=== PATIENT | female | born 1960 | race Caucasian/White ===

== ENCOUNTER → 2016-11-20 | Outpatient (CLI) | payer BC ==
--- NOTE | 2016-11-20 10:18 | MM ---
Reason for exam: screening (asymptomatic). Last mammogram was performed 1 year ago. History: Patient is postmenopausal. Physical Findings: A clinical breast exam by your physician is recommended on an annual basis and results should be correlated with mammographic findings. MG 3D Screening Mammo W/Cad Bilateral CC and MLO view(s) were taken. Prior study comparison: November 10, 2015, bilateral MG screening mammo w CAD. October 21, 2014, bilateral MG screening mammo w CAD. There are scattered fibroglandular densities. No significant changes when compared with prior studies. ASSESSMENT: Benign, BI-RAD 2 RECOMMENDATION: Routine screening mammogram of both breasts in 1 year.
== END | disposition home or self-care (01) ==
LOC: RADMAMWWP 08:51
PROVIDERS: ATTEND Obstetrics & Gynecology
DX: Z12.31 Encounter for screening mammogram for malignant neoplasm of breast (principal)
CPT/HCPCS: 77063; G0202

== ENCOUNTER → 2018-01-16 | Outpatient (CLI) | payer BC ==
--- NOTE | 2018-01-17 11:32 | MM ---
Reason for exam: screening (asymptomatic). Last mammogram was performed 1 year and 2 months ago. History: Patient is postmenopausal. Physical Findings: A clinical breast exam by your physician is recommended on an annual basis and results should be correlated with mammographic findings. MG 3D Screening Mammo W/Cad Bilateral CC and MLO view(s) were taken. Prior study comparison: November 20, 2016, bilateral MG 3d screening mammo w/cad. November 10, 2015, bilateral MG screening mammo w CAD. There are scattered fibroglandular densities. There is a 5mm right lower inner quadrant mass at anterior middle depth with associated asymmetry centrally at middle depth on MLO view only (possibly ductal). No suspicious abnormality on the left breast. ASSESSMENT: Incomplete: need additional imaging evaluation, BI-RAD 0 RECOMMENDATION: Ultrasound of the right breast. [facility] will attempt to contact patient to return for ultrasound.
== END | disposition home or self-care (01) ==
LOC: RADMAMWWP 15:11
PROVIDERS: ATTEND Obstetrics & Gynecology
DX: Z12.31 Encounter for screening mammogram for malignant neoplasm of breast (principal)
CPT/HCPCS: 77063; 77067

== ENCOUNTER → 2018-01-23 | Outpatient (CLI) | payer BC ==
--- NOTE | 2018-01-23 16:13 | USB ---
Reason for exam: additional evaluation requested from abnormal screening. History: Patient is postmenopausal. Physical Findings: Nurse did not find any significant physical abnormalities on exam. US Breast Workup RT Right complete breast ultrasound includes all four quadrants, the retroareolar region and axilla. Finding demonstrates no cystic or solid lesion seen. These results were verbally communicated with the patient and result sheet given to the patient on 01/23/18. ASSESSMENT: Probably benign, BI-RAD 3 RECOMMENDATION: Follow-up diagnostic mammogram of the right breast in 6 months.
== END | disposition home or self-care (01) ==
LOC: RADUSWWP 07:34
PROVIDERS: ATTEND Obstetrics & Gynecology
DX: R92.8 Other abnormal and inconclusive findings on diagnostic imaging of breast (principal)

== ENCOUNTER → 2018-07-22 | Outpatient (CLI) | payer BC ==
--- NOTE | 2018-07-22 13:32 | MM ---
Reason for exam: follow-up at short interval from prior study. Last mammogram was performed 6 months ago. History: Patient is postmenopausal. Physical Findings: Nurse did not find any significant physical abnormalities on exam. MG 3D Diag Mammo W/Cad RT CC and MLO view(s) were taken of the right breast. Prior study comparison: January 16, 2018, bilateral MG 3d screening mammo w/cad. November 20, 2016, bilateral MG 3d screening mammo w/cad. The breast tissue is heterogeneously dense. This may lower the sensitivity of mammography. Finding: There is a typically benign 3 mm equal density (isodense), circumscribed round mass in the upper outer quadrant, anterior position of the right breast. No significant changes in finding since January 16, 2018 and November 20, 2016. These results were verbally communicated with the patient and result sheet given to the patient on 07/22/18. ASSESSMENT: Benign, BI-RAD 2 RECOMMENDATION: Return to routine screening mammogram schedule for both breasts. Back on schedule.
== END | disposition home or self-care (01) ==
LOC: RADMAMWWP 12:49
PROVIDERS: ATTEND Obstetrics & Gynecology
DX: R92.8 Other abnormal and inconclusive findings on diagnostic imaging of breast (principal)
CPT/HCPCS: 77061; 77065

== ENCOUNTER → 2019-02-24 | Outpatient (CLI) | payer BC ==
--- NOTE | 2019-02-24 10:59 | BD ---
EXAMINATION TYPE: Axial Bone Density DATE OF EXAM: 02/24/2019 COMPARISON: 2016 CLINICAL HISTORY: M [age] Height: 5 FT 4 IN Weight: 195 FRAX RISK QUESTIONS: Family History (Parent hip fracture): YES Glucocorticoids (More than 3mos): YES (Ex: prednisone, prednisolone, methylprednisolone, dexamethasone, and hydrocortisone). Secondary Osteoporosis: RISK FACTORS HISTORY OF: Family History of Osteoporosis: YES Active: YES Postmenopausal woman: LATE 40'S MEDICATIONS: Thyroid Medications: YES Which medication: LEVOTHYROXINE How Long: SINCE HER 20'S Additional Medications: LEVOTHYROXINE,NEXIUM, CELEXA, DEBORAH, PLAQUENIL, VALSARTAN, VIT D, TRIAMCINL ON CREAM NEEDED Additional History: PT HAS LUPUS EXAM MEASUREMENTS: Bone mineral densitometry was performed using the Datalot System. Bone mineral density as measured about the Lumbar spine is: ----- L1-L4(G/cm2): 1.109 T Score Values are as follows: ----- L2: -0.8 ----- L3: 0.2 ----- L4: -0.7 ----- L1-L4: -0.6 Bone mineral density has: INCREASED 2.9 % since study of: 2016 Bone mineral density about the R hip (g/cm2): 1.052 Bone mineral density about the L hip (g/cm2): 1.040 T Score values are as follows: -----R Neck: 0.1 -----L Neck: 0.0 -----R Total: 1.0 -----L Total: 0.8 Bone mineral density has: DECREASED -1.9 % since study of: 2016 IMPRESSION: Normal (Values between +1 and -1 indicate normal bone mass). Consider repeating this study in 5 year s or sooner if there is some new clinical indication. NOTE: T-SCORE=SD OF THE YOUNG ADULT MEAN.
--- NOTE | 2019-02-25 10:55 | MM ---
Reason for exam: screening (asymptomatic). Last mammogram was performed 7 months ago. History: Patient is postmenopausal. Physical Findings: A clinical breast exam by your physician is recommended on an annual basis and results should be correlated with mammographic findings. MG 3D Screening Mammo W/Cad Bilateral CC and MLO view(s) were taken. Prior study comparison: July 22, 2018, right breast MG 3d diag mammo w/cad RT. January 16, 2018, bilateral MG 3d screening mammo w/cad. The breast tissue is heterogeneously dense. This may lower the sensitivity of mammography. No suspicious abnormality. No significant changes when compared with prior studies. ASSESSMENT: Negative, BI-RAD 1 RECOMMENDATION: Routine screening mammogram of both breasts in 1 year.
== END | disposition home or self-care (01) ==
LOC: RADMAMWWP 09:12
PROVIDERS: ATTEND Obstetrics & Gynecology
DX: Z12.31 Encounter for screening mammogram for malignant neoplasm of breast (principal); M89.9 Disorder of bone, unspecified
CPT/HCPCS: 77063; 77067; 77080

== ENCOUNTER → 2020-03-23 | Outpatient (CLI) | payer BC ==
--- NOTE | 2020-03-24 09:08 | MM ---
Reason for exam: screening (asymptomatic). Last mammogram was performed 1 year and 1 month ago. History: Patient is postmenopausal. Physical Findings: A clinical breast exam by your physician is recommended on an annual basis and results should be correlated with mammographic findings. MG 3D Screening Mammo W/Cad Bilateral CC and MLO view(s) were taken. Prior study comparison: February 24, 2019, bilateral MG 3d screening mammo w/cad. July 22, 2018, right breast MG 3d diag mammo w/cad RT. The breast tissue is heterogeneously dense. This may lower the sensitivity of mammography. There are benign appearing round, regional calcifications bilaterally, greater in the left breast. There is no discrete abnormality. ASSESSMENT: Benign, BI-RAD 2 RECOMMENDATION: Routine screening mammogram of both breasts in 1 year.
== END | disposition home or self-care (01) ==
LOC: RADMAMWWP 09:57
PROVIDERS: ATTEND Obstetrics & Gynecology
DX: Z12.31 Encounter for screening mammogram for malignant neoplasm of breast (principal)
CPT/HCPCS: 77063; 77067

== ENCOUNTER 2020-05-06 05:41 | Day surgery (SDC) | payer BC ==
[2020-04-29 16:20] VITALS: BMI 38.0
--- NOTE | 2020-05-05 12:56 | P.HPOB ---
History of Present Illness H&P Date: 05/05/20 Chief Complaint: Postmenopausal bleeding and endometrial thickening This patient is a pleasant 59-year-old 2 para 2 female who presented to my office with complaints of some spotting after intercourse. She states that was painful and then she had some bright red bleeding and then later it was brown. Due to her age however I did get an ultrasound which showed a questionable 1.1 cm endometrial polyp with endometrial thickness of 6 mm. I've advised hysteroscopy D&C for further evaluation. Review of Systems Menstruation: Reports as per HPI, Reports postmenopausal Past Medical History Past Medical History: Blood Disorder, GERD/Reflux, Hearing Disorder / Deafness, Hypertension, Skin Disorder, Thyroid Disorder Additional Past Medical History / Comment(s): Hx hemolytic anemia. Sl loss hearing Rt ear. Lupus, gets occ rashes. PM bleeding, polyp History of Any Multi-Drug Resistant Organisms: None Reported Past Surgical History: Cholecystectomy Additional Past Surgical History / Comment(s): D&C. Exc lipomas from leg Past Anesthesia/Blood Transfusion Reactions: Motion Sickness Smoking Status: Never smoker Past Alcohol Use History: None Reported Past Drug Use History: None Reported - Past Family History Mother Family Medical History: Cancer Additional Family Medical History / Comment(s): uterine cancer Father Family Medical History: Cancer Additional Family Medical History / Comment(s): Prostate cancer. Hx blood clot in arm, heart valve problems Medications and Allergies Home Medications Medication Instructions Recorded Confirmed Type Jay Jay/D3/Mag11/Zinc/Emotionally Impaired Teacher/Micheal/Bor 1 each PO DAILY 04/29/20 04/29/20 History [Caltrate 600+D Plus Tablet] Cholecalciferol [Vitamin D3 (25 1,000 unit PO DAILY 04/29/20 04/29/20 History Mcg = 1000 Iu)] Citalopram Hydrobromide 10 mg PO HS 04/29/20 04/29/20 History [Citalopram HBr] Esomeprazole Magnesium [NexIUM] 40 mg PO DAILY 04/29/20 04/29/20 History Fexofenadine HCl [Sharon Allergy] 180 mg PO DAILY 04/29/20 04/29/20 History Fluticasone Nasal Sigel [Flonase 2 spr EA NOSTRIL DAILY PRN 04/29/20 04/29/20 History Nasal Sigel] Hydroxychloroquine Sulfate 200 mg PO BID 04/29/20 04/29/20 History [Plaquenil] Ibuprofen [Motrin Ib] 400 - 600 mg PO Q8H 04/29/20 04/29/20 History Levothyroxine Sodium [Synthroid] 87.5 mcg PO FR 04/29/20 04/29/20 History Levothyroxine Sodium [Synthroid] 175 mcg PO SUMOTUWETHSA 04/29/20 04/29/20 History Triamcinolone 0.1% Cream [Kenalog 1 applicatio TOPICAL BID PRN 04/29/20 04/29/20 History 0.1% Cream] Valsartan [Diovan] 60 mg PO DAILY 04/29/20 04/29/20 History Allergies Allergy/AdvReac Type Severity Reaction Status Date / Time No Known Allergies Allergy Verified 04/29/20 15:53 Exam - OBG Physical Exam Abdomen: bowel sounds normal, no diffuse tenderness, no bruit present, no guarding noted, no hepatomegaly, no splenomegaly, no mass Vulva: both: normal Vagina: normal moisture, no discharge Cervix: no lesion, no discharge Uterus: normal size, normal contour Results Ultrasound done on April 22 showed a 1.1 cm questionable endometrial polyp with an endometrial thickness of 0.6 cm Assessment and Plan Assessment: This is a pleasant 59-year-old 2 para 2 female with an episode of postmenopausal bleeding and questionable endometrial polyp/endometrial thickening on ultrasound. Plan is hysteroscopy and D&C. I had a long discussion with the patient about the surgery and risks including risks of infection, bleeding, possible uterine perforation. All the patient's questions have been answered and a written consent is obtained. (1) Post-menopausal bleeding Status: Acute Code(s): N95.0 - POSTMENOPAUSAL BLEEDING SNOMED Code(s): 19969073 (2) Endometrial thickening on ultrasound Status: Acute Code(s): R93.89 - ABNORMAL FINDINGS ON DX IMAGING OF OTH BODY STRUCTURES SNOMED Code(s): 106020717
[~2020-05-06 05:41] MED LIST: DEXAMETHASONE SOD PHOSPHATE 4 MG/ML 1 ML VIAL IV ONE; HYDROmorphone 0.5 MG/0.5 ML SYRINGE IVP PRN; LACTATED RINGERS 1,000 ML IV SCH; MIDAZOLAM 2 MG/2 ML VIAL IV PRN; ONDANSETRON 4 MG/2 ML VIAL IVP ONE; Pre Op ABX Message 1 EACH MISC MISCELLANE ONE; SCOPOLAMINE 1.5MG/72HR PATCH TRANSDERM ONE
[2020-05-06] MEDS ORDERED: LIDOCAINE 1% (10MG/ML) FOR IV START INTRADERMA ONE (06:18)
[2020-05-06] MEDS ORDERED: fentaNYL (PF) 50 MCG/ML 2 ML AMP ONE (06:57)
[2020-05-06] MEDS ORDERED: PROPOFOL 10 MG/ML 20 ML VIAL IV ONE (06:57)
[2020-05-06] MEDS ORDERED: KETOROLAC 15 MG/ML 1 ML VIAL ONE (06:57)
[2020-05-06] MEDS ORDERED: MIDAZOLAM 2 MG/2 ML VIAL ONE (06:57)
[2020-05-06] MEDS ORDERED: KETAMINE 10 MG/ML 20 ML VIAL ONE (06:57)
--- NOTE | 2020-05-06 07:36 | P.OP ---
Date of Procedure: 05/06/20 Preoperative Diagnosis: Postmenopausal bleeding with thickened endometrium on ultrasound Postoperative Diagnosis: Same Procedure(s) Performed: #1: Hysteroscopy. #2: Dilation and curettage Anesthesia: other (IV sedation) Surgeon: Sean Spring Estimated Blood Loss (ml): 5 Urine output (ml): 40 Pathology: other (Uterine curettings) Condition: stable Disposition: PACU Indications for Procedure: Please see dictated H&P for intimate details of this patient's admission. Brief summary this is a pleasant 59-year-old 2 para 2 female who had an episode of postmenopausal bleeding and ultrasound showing endometrial thickening with probable polyp. Patient now presents for hysteroscopy D&C for further evaluation. Patient and I have discussed the surgery and risks and risks of infection, bleeding, possible uterine perforation. All the patient's questions are answered written consent is obtained Operative Findings: This patient had an atrophic endometrium with a benign appearing polyp on the left corneal area. Description of Procedure: This patient is taken to the operating room where she is laid in the supine position. She subsequent undergoes IV sedation for adequate level of anesthe cristi. Patient is then placed in dorsal lithotomy position. She has a vaginal perineal prep and drape. Examination under anesthesia shows a mid position uterus is small. I first drain the bladder for 40 mL of clear urine. Weighted speculum placed in posterior vagina. Anterior lip the cervix was grabbed with an Allis clamp. Uterus is gently sounded to approximately 7-1/2 cm. Gentle dilation is then done of the endocervix to allow the hysteroscope into the uterine cavity. Hysteroscopy is then performed with saline solution. Endometrium appears thin and atrophic. Over on the right corneal area there is approximately 1 cm benign appearing polyp. The hysteroscope was then removed. Serial dilation is done of the endocervix more to allow a polyp forceps into the uterine cavity using polyp forceps unable to remove the majority of this polyp. Sharp curettage is done for more polyp fragments and adequate sampling of all the endometrium. Again the endometrium appears very atrophic and there is no concerning lesions noted. With this done the Allis clamp and weighted speculum removed. All counts are correct 3. Patient is awakened from anesthesia and taken recovery room satisfactory condition. There are no complications.
[2020-05-06 07:40] VITALS: TEMP 97.6
[2020-05-06] MEDS ORDERED: LACTATED RINGERS 1,000 ML IV ONE (08:02)
[2020-05-06 08:33] VITALS: RESP 16
[2020-05-06 08:50] VITALS: BP 158/93; PULSE 66
== END 2020-05-06 09:15 | disposition home or self-care (01) ==
LOC: OR 05:41
PROVIDERS: ATTEND Obstetrics & Gynecology
DX: N84.0 Polyp of corpus uteri (principal); N95.0 Postmenopausal bleeding; I10 Essential (primary) hypertension; F32.9 Major depressive disorder, single episode, unspecified; F41.9 Anxiety disorder, unspecified; E03.9 Hypothyroidism, unspecified; F41.0 Panic disorder [episodic paroxysmal anxiety]; E87.6 Hypokalemia; J30.2 Other seasonal allergic rhinitis; M32.9 Systemic lupus erythematosus, unspecified; G89.29 Other chronic pain; M54.9 Dorsalgia, unspecified; K21.9 Gastro-esophageal reflux disease without esophagitis; H90.41 Sensorineural hearing loss, unilateral, right ear, with unrestricted hearing on the contralateral side; Z88.8 Allergy status to other drugs, medicaments and biological substances; Z79.890 Hormone replacement therapy; Z79.52 Long term (current) use of systemic steroids; Z79.899 Other long term (current) drug therapy; Z79.1 Long term (current) use of non-steroidal anti-inflammatories (NSAID); Z98.890 Other specified postprocedural states; Z86.2 Personal history of diseases of the blood and blood-forming organs and certain disorders involving the immune mechanism; Z90.49 Acquired absence of other specified parts of digestive tract; Z87.898 Personal history of other specified conditions; Z82.49 Family history of ischemic heart disease and other diseases of the circulatory system; Z83.3 Family history of diabetes mellitus; Z80.49 Family history of malignant neoplasm of other genital organs; Z80.42 Family history of malignant neoplasm of prostate
CPT/HCPCS: 88305; 84132; 58558; J2250; J1100; J2405; J3010; J1885; J2704

== ENCOUNTER → 2021-05-03 | Outpatient (CLI) | payer BC ==
--- NOTE | 2021-05-04 11:47 | MM ---
Reason for exam: screening (asymptomatic). Last mammogram was performed 1 year and 1 month ago. History: Patient is postmenopausal. Physical Findings: A clinical breast exam by your physician is recommended on an annual basis and results should be correlated with mammographic findings. MG 3D Screening Mammo W/Cad Bilateral CC and MLO view(s) were taken. Prior study comparison: March 23, 2020, bilateral MG 3d screening mammo w/cad. February 24, 2019, bilateral MG 3d screening mammo w/cad. There are scattered fibroglandular densities. No significant changes when compared with prior studies. ASSESSMENT: Benign, BI-RAD 2 RECOMMENDATION: Routine screening mammogram of both breasts in 1 year.
== END | disposition home or self-care (01) ==
LOC: RADMAMWWP 09:14
PROVIDERS: ATTEND Obstetrics & Gynecology
DX: Z12.31 Encounter for screening mammogram for malignant neoplasm of breast (principal)
CPT/HCPCS: 77063; 77067

== ENCOUNTER → 2022-05-04 | Outpatient (CLI) | payer BC ==
--- NOTE | 2022-05-07 10:43 | MM ---
Reason for Exam: Screening (asymptomatic). Last screening mammogram was performed 12 month(s) ago. Patient History: Menarche at age 14. First Full-Term at age 27. Postmenopausal. Patient has history of breast feeding. Risk Values: Arielle 5 year model risk: 1.5%. NCI Lifetime model risk: 7.2%. Prior Study Comparison: 02/24/2019 Bilateral Screening Mammogram, [facility]. 03/23/2020 Bilateral Screening Mammogram, [facility]. 05/03/2021 Bilateral Screening Mammogram, [facility]. Tissue Density: The breast tissue is almost entirely fat. Findings: Analyzed By CAD. There is no suspicious group of microcalcifications or new suspicious mass in either breast. Overall Assessment: Negative, BI-RAD 1 Management: Screening Mammogram of both breasts in 1 year. A clinical breast exam by your physician is recommended on an annual basis and results should be correlated with mammographic findings. [facility] will attempt to contact patient to return for supplemental views and ultrasound if indicated. Electronically signed and approved by: Beny White DO
== END | disposition home or self-care (01) ==
LOC: RADMAMWWP 08:55
PROVIDERS: ATTEND Obstetrics & Gynecology
DX: Z12.31 Encounter for screening mammogram for malignant neoplasm of breast (principal); Z78.0 Asymptomatic menopausal state
CPT/HCPCS: 77063; 77067

== ENCOUNTER → 2023-07-23 | Outpatient (CLI) | payer BC ==
--- NOTE | 2023-07-24 09:52 | MM ---
Reason for Exam: Screening (asymptomatic). Last mammogram was performed 1 year(s) and 3 month(s) ago. Patient History: Menarche at age 14. First Full-Term at age 27. Postmenopausal. Patient has history of breast feeding. Risk Values: Arielle 5 year model risk: 1.5%. NCI Lifetime model risk: 7.0%. Prior Study Comparison: 11/20/2016 Bilateral Screening Mammogram, [facility]. 01/16/2018 Bilateral Screening Mammogram, [facility]. 07/22/2018 Right Diagnostic Mammogram, [facility]. 02/24/2019 Bilateral Screening Mammogram, [facility]. 03/23/2020 Bilateral Screening Mammogram, [facility]. 05/03/2021 Bilateral Screening Mammogram, [facility]. 05/04/2022 Bilateral MG 3D screening mammo w/cad, [facility]. Tissue Density: The breast tissue is heterogeneously dense. This may lower the sensitivity of mammography. Findings: Analyzed By CAD. There is no suspicious group of microcalcifications or new suspicious mass in either breast. Benign-appearing calcifications bilaterally. Some benign-appearing calcifications. There is an asymmetric density in the central margin of the left breast. Overall Assessment: Incomplete: need additional imaging evaluation, BI-RAD 0 Management: Special View Mammogram of the left breast. . Patient should continue monthly self-breast exams. A clinical breast exam by your physician is recommended on an annual basis. This exam should not preclude additional follow-up of suspicious palpable abnormalities. Note on Arielle scores and lifetime risk: 1. A Arielle score greater than 3% is considered moderate risk. If this is the case, consider specialist referral to assess eligibility for a risk reducing agent. 2. If overall lifetime risk for the development of breast cancer is 20% or higher, the patient may qualify for future screening with alternating mammogram and breast MRI. Electronically signed and approved by: August Lake M.D. Radiologis
== END | disposition home or self-care (01) ==
LOC: RADMAMWWP 09:40
PROVIDERS: ATTEND Obstetrics & Gynecology
DX: Z12.31 Encounter for screening mammogram for malignant neoplasm of breast (principal); Z78.0 Asymptomatic menopausal state
CPT/HCPCS: 77063; 77067

== ENCOUNTER → 2023-07-26 | Outpatient (CLI) | payer BC ==
--- NOTE | 2023-07-26 10:20 | MM ---
Reason for Exam: Additional evaluation requested from abnormal screening. Last screening mammogram was performed less than 1 month ago. Patient History: Menarche at age 14. First Full-Term at age 27. Postmenopausal. Patient has history of breast feeding. Risk Values: Arielle 5 year model risk: 1.5%. NCI Lifetime model risk: 7.0%. Prior Study Comparison: 05/03/2021 Bilateral Screening Mammogram, [facility]. 05/04/2022 Bilateral MG 3D screening mammo w/cad, [facility]. 07/23/2023 Bilateral MG 3D screening mammo w/cad, [facility]. Tissue Density: Left: The breast tissue is almost entirely fat. Findings: Analyzed By CAD. No evidence for persistent nodule or mass. No distortion seen. Overall Assessment: Negative, BI-RAD 1 Management: Screening Mammogram of both breasts in 1 year. . Results were given to the patient verbally at the time of exam. Patient should continue monthly self-breast exams. A clinical breast exam by your physician is recommended on an annual basis. This exam should not preclude additional follow-up of suspicious palpable abnormalities. Note on Arielle scores and lifetime risk: 1. A Arielle score greater than 3% is considered moderate risk. If this is the case, consider specialist referral to assess eligibility for a risk reducing agent. 2. If overall lifetime risk for the development of breast cancer is 20% or higher, the patient may qualify for future screening with alternating mammogram and breast MRI. Electronically signed and approved by: Caio Benites M.D. Radiologis
== END | disposition home or self-care (01) ==
LOC: RADMAMWWP 09:49
PROVIDERS: ATTEND Obstetrics & Gynecology
DX: R92.8 Other abnormal and inconclusive findings on diagnostic imaging of breast (principal); Z78.0 Asymptomatic menopausal state
CPT/HCPCS: 77061; 77065

== ENCOUNTER 2023-08-28 08:39 | Day surgery (SDC) | payer BC ==
[2023-08-26 15:15] VITALS: BMI 40.5
[2023-08-28] MEDS ORDERED: LIDOCAINE 1% (10MG/ML) FOR IV START INTRADERMA PRN (09:00)
[2023-08-28] MEDS: LACTATED RINGERS 1,000 ML IV SCH (09:27)
[2023-08-28 10:00] VITALS: TEMP 98.4
[2023-08-28] MEDS ORDERED: PROPOFOL 10 MG/ML 20 ML VIAL IV ONE (10:03)
[2023-08-28 10:36] VITALS: BP 118/76; PULSE 71; RESP 16
--- NOTE | 2023-08-28 11:04 | P.PCN ---
Date of Procedure: 08/28/23 Procedure(s) Performed: BRIEF HISTORY: Patient is a 62-year-old pleasant white female scheduled for an elective colonoscopy as a part of screening for colon cancer. PROCEDURE PERFORMED: Colonoscopy with snare polypectomy. PREOPERATIVE DIAGNOSIS: Screening for colon cancer. IV sedation per Anesthesia. PROCEDURE: After informed consent was obtained, the patient, was brought into the endoscopy unit. IV sedation was administered by Anesthesia under continuous monitoring. Digital rectal examination was normal. Initially the Olympus CF-160 flexible video colonoscope was then inserted in the rectum, gradually advanced into the cecum without any difficulty. Careful examination was performed as the scope was gradually being withdrawn. Ileocecal valve and the appendiceal orifice were visualized and appeared normal. Prep was excellent. Mucosa of the cecum, appeared normal. In the ascending colon there was a 5 limited polyp that was removed by cold snare polypectomy. Rest of the ascending colon, transverse colon, descending colon, sigmoid colon, and rectum appeared normal. In the mid rectum at 7 cm was a 3 cm broad-based polyp that was removed by piecemeal snare polypectomy and almost complete polypectomy was accomplished. Retroflexion was performed in the rectum and no lesions were seen. The patient tolerated the procedure well. IMPRESSION: 5 mm ascending colon polyp status post cold snare polypectomy 3 cm broad-based mid rectal polyp at 7 cm from the anal verge status post piece meal snare polypectomy and almost complete polypectomy accomplished RECOMMENDATIONS: Findings of this examination were discussed with the patient as well as a family. She was advised to follow with the biopsy results. She will be seen in office in one week. Based on the the biopsy results will plan a repeat sigmoidoscopy in 2 to 3 months.
== END 2023-08-28 11:33 | disposition home or self-care (01) ==
LOC: ORWHC2ENDO 08:39
PROVIDERS: ATTEND Internal Medicine Gastroenterology
DX: Z12.11 Encounter for screening for malignant neoplasm of colon (principal); D12.2 Benign neoplasm of ascending colon; D12.8 Benign neoplasm of rectum; I10 Essential (primary) hypertension; E07.9 Disorder of thyroid, unspecified; F41.9 Anxiety disorder, unspecified; K21.9 Gastro-esophageal reflux disease without esophagitis; Z79.890 Hormone replacement therapy; Z79.899 Other long term (current) drug therapy; Z98.890 Other specified postprocedural states
CPT/HCPCS: 45385; J2704; 88305

== ENCOUNTER 2023-12-25 09:03 | Day surgery (SDC) | payer BC ==
[2023-12-23 12:36] VITALS: BMI 40.6
[2023-12-25 09:33] VITALS: TEMP 98.7
[2023-12-25] MEDS: LACTATED RINGERS 1,000 ML IV SCH (09:43)
[2023-12-25] MEDS: IV FLUID CONTINUATION 1,000 ML IV ONE (09:44)
[2023-12-25] MEDS ORDERED: PROPOFOL 10 MG/ML 20 ML VIAL IV ONE (10:22)
--- NOTE | 2023-12-25 10:30 | P.PCN ---
Date of Procedure: 12/25/23 Procedure(s) Performed: BRIEF HISTORY: Patient is a 63-year-old pleasant white female scheduled for an elective flexible sigmoidoscopy as part of follow-up of large rectal polyp noted on colonoscopy in August of this year. She was noted to have a 3 cm broad-based polyp that was removed by snare polypectomy and biopsy revealed serrated adenoma. PROCEDURE PERFORMED: Flexible sigmoidoscopy PREOPERATIVE DIAGNOSIS: Follow-up large serrated rectal polyp noted on colonoscopy 3 months ago. IV sedation per Anesthesia. PROCEDURE: After informed consent was obtained, the patient, was brought into the endoscopy unit. IV sedation was administered by Anesthesia under continuous monitoring. Digital rectal examination was normal. Initially the Olympus CF-160 flexible video colonoscope was then inserted in the rectum, gradually advanced into the descending colon without any difficulty. Careful examination was performed as the scope was gradually being withdrawn. Mucosa of the descending colon, sigmoid colon, and rectum appeared normal. There was some scarring noted in the mid rectum at the site of previous polypectomy but no residual polyp identified. Scattered sigmoid diverticulosis seen. Retroflexion was performed in the rectum and no lesions were seen. The patient tolerated the procedure we ll. IMPRESSION: Normal-appearing colon from rectum to descending colon with no residual polyp noted in the rectum at the site of previous polypectomy Scattered sigmoid diverticulosis RECOMMENDATIONS: Findings of this examination were discussed with the patient as well as her family. She was advised to have repeat colonoscopy in 3 years..
[2023-12-25 10:58] VITALS: RESP 16
[2023-12-25 11:03] VITALS: BP 131/83; PULSE 71
== END 2023-12-25 11:24 | disposition home or self-care (01) ==
LOC: ORWHC2ENDO 09:03
PROVIDERS: ATTEND Internal Medicine Gastroenterology
DX: K57.30 Diverticulosis of large intestine without perforation or abscess without bleeding (principal); I10 Essential (primary) hypertension; E03.9 Hypothyroidism, unspecified; K21.9 Gastro-esophageal reflux disease without esophagitis; M32.9 Systemic lupus erythematosus, unspecified; Z79.890 Hormone replacement therapy; Z79.899 Other long term (current) drug therapy; Z90.49 Acquired absence of other specified parts of digestive tract; Z98.890 Other specified postprocedural states
CPT/HCPCS: 45330; J2704

== ENCOUNTER → 2024-09-30 | Outpatient (CLI) | payer BC ==
--- NOTE | 2024-09-30 09:39 | MM ---
Reason for Exam: Screening (asymptomatic). Last mammogram was performed 1 year(s) and 2 month(s) ago. Patient History: Menarche at age 14. First Full-Term at age 27. Postmenopausal. Patient has history of breast feeding. Risk Values: Arielle 5 year model risk: 1.6%. NCI Lifetime model risk: 6.8%. Prior Study Comparison: 05/04/2022 Bilateral MG 3D screening mammo w/cad, [facility]. 07/23/2023 Bilateral MG 3D screening mammo w/cad, [facility]. 07/26/2023 Left MG 3D work up w/cad , [facility]. Tissue Density: The breasts are heterogeneously dense, which may obscure small masses. Findings: Analyzed By CAD. There is no suspicious group of microcalcifications or new suspicious mass in either breast. Overall Assessment: Benign, BI-RAD 2 Management: Screening Mammogram of both breasts in 1 year. . Patient should continue monthly self-breast exams. A clinical breast exam by your physician is recommended on an annual basis. This exam should not preclude additional follow-up of suspicious palpable abnormalities. Note on Arielle scores and lifetime risk: 1. A Arielle score greater than 3% is considered moderate risk. If this is the case, consider specialist referral to assess eligibility for a risk reducing agent. 2. If overall lifetime risk for the development of breast cancer is 20% or higher, the patient may qualify for future screening with alternating mammogram and breast MRI. [facility], , 09/30/2024 9:36 AM. Electronically signed and approved by: Caio Benites M.D. Radiologis
== END | disposition home or self-care (01) ==
LOC: RADMAMWWP 09:17
PROVIDERS: ATTEND Family Medicine
DX: Z12.31 Encounter for screening mammogram for malignant neoplasm of breast (principal); R92.333 Mammographic heterogeneous density, bilateral breasts; Z78.0 Asymptomatic menopausal state
CPT/HCPCS: 77063; 77067